=== PATIENT | male | born 1980 | race Caucasian/White ===

== ENCOUNTER 2016-12-08 20:51 | Emergency (ER) | payer BC ==
[~2016-12-08] VITALS: Ht 177.8 cm; Wt 104.3 kg
[2016-12-08] MEDS ORDERED: HYDR25TA PO (21:09)
[2016-12-08] MEDS ORDERED: FLUT30CR5 TP (21:09)
[2016-12-08] MEDS ORDERED: PRED20TA PO (21:09)
--- NOTE | 2016-12-08 21:10 | PHYS DOC ---
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 This was an outside event. He may been exposed to poison oak poison shiva. He is to use calamine lotion and Benadryl with some improvement of his itching. But the itching is becoming more intense. He denies any fevers, chills , shortness of breath, joint pain. He denies any history of sexually transmitted diseases he denies any history of trauma. Patient does not use any antibiotics, he is not exposed to any drugs although he does smoke and drink alcohol on occasion. Review of Systems Review of Systems Constitutional: Denies fever or chills [] Eyes: Denies change in visual acuity, redness, or eye pain [] HENT: Denies nasal congestion or sore throat [] Respiratory: Denies cough or shortness of breath [] Cardiovascular: No additional information not addressed in HPI [] GI: Denies abdominal pain, nausea, vomiting, bloody stools or diarrhea [] : Denies dysuria or hematuria [] Musculoskeletal: Denies back pain or joint pain [] Integument does complain of any distress over most of his body Neurologic: Denies headache, focal weakness or sensory changes [] Physical Exam Physical Exam Vital signs reviewed within normal limits. Constitutional: Well developed, well nourished, no acute distress, non-toxic appearance. [] Neck: Normal range of motion, no tenderness, supple, no stridor. [] Cardiovascular:Heart rate regular rhythm, no murmur [] Lungs & Thorax: Bilateral breath sounds clear to auscultation [] Skin: Warm, dry, no erythema, patchy erythematous rash noted on most the torso upper back legs and arms. It is nonvesicular in nature is patchy non- blanchable. There are no purpura associated with it there is no circumferential or target lesions associated with this particular rash. Back: No tenderness, no CVA tenderness. [] Extremities: No tenderness, no cyanosis, no clubbing, ROM intact, no edema. [] Neurologic: Alert and oriented X 3, normal motor function, normal sensory function, no focal deficits noted. [] Psychologic: Affect normal, judgement normal, mood normal. [] EKG EKG [] Radiology/Procedures Radiology/Procedures [] Course & Med Decision Making Course & Med Decision Making Pertinent Labs and Imaging studies reviewed. (See chart for details) it is my suspicion that this patient is gotten into a contact dermatitis secondary to poison oak or poison shiva exposure. There is no other high risk features in his history like fevers, joint pain joint swelling history section transmitted diseases or recent medical medication changes. Doubt Holman-Sami syndrome, Ten, necrotizing fasciitis, Rockman spotted fever, meningitis, disseminated gonococcal disease, TTP ITP HSP Mode provided a prescription for Atarax, fluticasone, and prednisone burst. Prednisone burst here and a dose of Atarax Impression: Contact dermatitis Disposition: PCP follow-up in 48 hours if tenderness continue. Would advise cleaning his skin with [id number] detergent. This may help to breakdown the oils that are causing the reaction. [] Dragon Disclaimer Dragon Disclaimer This chart was dictated in whole or in part using Voice Recognition software in a busy, high-work load, and often noisy Emergency Department environment. It may contain unintended and wholly unrecognized errors or omissions. Departure Departure: Impression: Primary Impression: Contact dermatitis Disposition: 01 HOME, SELF-CARE Condition: STABLE Referrals: PCP,NO (PCP) Patient Instructions: Contact Dermatitis Additional Instructions: Please return for any joint swelling, fever greater than 102.2, if you have any problems swallowing or change in voice, if you have any abdominal pain or blood in your stool. I would advise that you use the supportive medications Treat your symptoms please follow-up with your primary care doctor. Symptoms not improve despite treatment. Scripts Fluticasone Propionate (CUTIVATE) 30 Gm Cream..g. 1 BENJAMÍN TP BID, #60 GM 1 Refill Prov: KARELY YU MD 12/08/16 Prednisone (PREDNISONE) 20 Mg Tablet 3 TAB PO DAILY for 5 Days, #15 TAB Prov: KARELY YU MD 12/08/16 Hydroxyzine Hcl (HYDROXYZINE HCL) 25 Mg Tablet 1 TAB PO TID, #30 TAB Prov: KARELY YU MD 12/08/16 KARELY YU MD Dec 08, 2016 21:10
[2016-12-08] MEDS ORDERED: hydrOXYzine PAMOATE 25 MG CAPSULE PO PRN (21:15)
[2016-12-08 21:20] VITALS: BP 130/60
[2016-12-08] MEDS ORDERED: hydrOXYzine HCL 25 MG TABLET ONE (21:20)
[2016-12-08] MEDS ORDERED: predniSONE 20 MG TABLET PO ONE (21:30)
[2016-12-08] MEDS ORDERED: hydrOXYzine HCL 25 MG TABLET PO ONE (22:00)
== END 2016-12-08 21:20 | disposition home or self-care (01) ==
LOC: ER 20:51
DX: L25.9 Unspecified contact dermatitis, unspecified cause (principal); F17.210 Nicotine dependence, cigarettes, uncomplicated
CPT/HCPCS: 99283; J7512